=== PATIENT | female | born 1970 | race Caucasian/White ===

== ENCOUNTER → 2016-08-20 | Outpatient (CLI) | payer OTHER | LOC: BMCIMAGING 11:25 | DX: Z12.31 Encounter for screening mammogram for malignant neoplasm of breast (principal) | CPT/HCPCS: G0202 ==

== ENCOUNTER → 2017-08-24 | Outpatient (CLI) | payer OTHER | LOC: BMCIMAGING 14:02 | PROVIDERS: ATTEND Internal Medicine | DX: Z12.31 Encounter for screening mammogram for malignant neoplasm of breast (principal) ==

== ENCOUNTER 2017-11-07 09:18 | Inpatient (IN) | payer OTHER ==
--- NOTE | 2017-11-07 09:27 | EDPHY ---
H & P Stated Complaint: hyponatremia Time Seen by Provider: 11/07/17 09:26 - Personal History LMP (Females 10-55): 8-14 Days Ago Current Tetanus Diphtheria and Acellular Pertussis (TDAP): Yes - Medical/Surgical History Hx Asthma: No Hx Chronic Respiratory Disease: No Hx Diabetes: No Hx Cardiac Disease: No Hx Renal Disease: No Hx Cirrhosis: No Hx Alcoholism: No Hx HIV/AIDS: No Hx Splenectomy or Spleen Trauma: No Other PMH: denies - Social History Smoking Status: Never smoked Constitutional: Initial Vital Signs Temperature (C) 36.3 C 11/07/17 09:21 Heart Rate 71 11/07/17 09:21 Respiratory Rate 18 11/07/17 09:21 Blood Pressure 135/87 H 11/07/17 09:21 O2 Sat (%) 98 11/07/17 09:21 O2 Delivery Mode Room Air Allergies/Adverse Reactions: No Known Allergies Allergy (Verified 11/07/17 09:19) Home Medications: Medication Instructions Recorded Citalopram 11/07/17 NK [No Known Home Meds] 11/07/17 Medical Decision Making ED Course/Re-evaluation: CHIEF COMPLAINT: Hyponatremia HISTORY OF PRESENT ILLNESS: The patient is a 47 y/o female arriving for hyponatremia. She was seen here last night for anxiety and confusion after 5 alcoholic drinks and a small amount of marijuana. She awoke this morning feeling confused and off balance. Initially, she requested a full workup and labs were sent. She then changed her mind and requested to go home. She left but labs came back indicating a sodium of 119. She was asked to return. She reports feeling sleepy, nauseated, off-balance, and confused. Her reports she was drinking lots of water last night. She denies a history of electrolyte abnormalities. REVIEW OF SYSTEMS: A 10 point review of systems was performed and is negative with the exception of the elements mentioned in the history of present illness. PHYSICAL EXAM: HR, BP, O2 Sat, RR. Temp noted General Appearance: Alert, well hydrated, appropriate, somnolent but easily arousable. Responds when spoken to. Head: Atraumatic without scalp tenderness or obvious injury Eyes: Pupils equal, round, reactive to light and accommodation, EOMI, no trauma , no injection. Ears: Clear bilaterally, no perforation, normal landmarks Nose: Atraumatic, no rhinorrhea, clear. Throat: There is no erythema or exudates, no lesions, normal tonsils, mucus membranes moist. Neck: Supple, nontender, no lymphadenopathy. Respiratory: No retractions, no distress, no wheezes, and no accessory muscle use. Cardiovascular: Regular rate and rhythm, no murmurs, rubs, or gallops. Gastrointestinal: Abdomen is soft, nontender, non-distended, no masses, no rebound, no guarding, no peritoneal signs. Musculoskeletal: Normal active ROM of all extremities, atraumatic. Neurological: Alert, appropriate, and interactive. Skin: No rashes, good turgor, no nodules on palpation. Past medical history: Anxiety Past surgical history: Denies Family history: Non-contributory Social history: , at bedside, lives in [place], nonsmoker DIFFERENTIAL DIAGNOSIS: The differential diagnosis for this patient's hyponatremia included but was not limited to excess water intake, kidney disease , acute kidney failure, and other electrolyte abnormalities. MEDICAL DECISION MAKING: The patient presents with hyponatremia. She was seen earlier for possible intoxication but did not improve as expected. A full workup was ordered but she decided to leave prior to the completion of her workup. Labs indicate a sodium of 119. She was drank a fair amount of water yesterday which may be the cause. Plan for urine osmolarity, urine chloride, urine potassium, urine sodium, urine creatinine, and admission for further treatment and workup of cause. 9:45 AM - I spoke with the hospitalist service regarding admission for this patient. Dr. Vital will be the admitting physician. I consulted with Dr. Gaytan, nephrology, who agrees with the labs ordered but believes she likely has an underlying condition causing the hyponatremia. She will consult on this patient. - Data Points Laboratory Results: 11/07/17 07:45 Serum Osmolality Pending Departure - Departure Disposition: [facility] Inpatient Acute Clinical Impression: Hyponatremia Condition: Fair Referrals: NONE *PRIMARY CARE P,. [Primary Care Provider] - As per Instructions Report Scribed for: Maxwell Katz Report Scribed by: Guera Duong Date of Report: 11/07/17 Time of Report: 10:17
[2017-11-07] MEDS ORDERED: ONDANSETRON 4 MG/2 ML VIAL IVP PRN (13:08)
[2017-11-07] MEDS ORDERED: ACETAMINOPHEN 325 MG TAB PO PRN (13:08)
[2017-11-07] MEDS ORDERED: ONDANSETRON DISINTEGRATING 4 MG TAB PO PRN (13:08)
--- NOTE | 2017-11-07 14:30 | GHP ---
[f rep st] HISTORY AND PHYSICAL DATE OF ADMISSION: 11/07/2017 CHIEF COMPLAINT: Disorientation. HISTORY OF PRESENT ILLNESS: This is a 47-year-old female who is fairly healthy. She only has a hist ory of anxiety and has been on Celexa for quite a long time. Currently, she has been in her usual [facility]. Yesterday, she went to a concert and had 3 margaritas and may be a vodka drink as wel l as 1 hit of marijuana. Per her , she drank a significant amount of water throughout the nig ht. Early this morning, she felt confused and off-balance and came to the emergency department. She currently feels sleepy, disoriented. No focal weakness. She has never had any symptoms like this b efore. She had normal electrolytes in 2012. REVIEW OF SYSTEMS: A 10-point review of systems was obtained and was negative. PAST MEDICAL HISTORY: Anxiety. MEDICATIONS: Celexa. SOCIAL HISTORY: No smoking. Alcohol. FAMILY HISTORY: Anxiety. PHYSICAL EXAM: VITAL SIGNS: Afebrile, blood pressure is 99/66, heart rate 77, oxygen saturation 97% on room air. GENERAL: The patient is well developed, no apparent distress. HEENT: Nonicteric scl erae. Extraocular movements intact. Slightly dry mucous membranes. NECK: Supple. No thyromegaly. LUNGS: Good effort. Clear to auscultation bilaterally. CARDIOVASCULAR: Regular rate and rhythm. No murmurs, gallops. ABDOMEN: Positive bowel sounds. Soft, nontender, nondistended. No hepatosp lenomegaly. EXTREMITIES: No clubbing, cyanosis, or edema. SKIN: Without rash. Warm, dry, intact. NEUROLOGIC: Alert, has minimal responses to questions, although, and looks like she gets confused w ith some of them. Moving all 4 extremities equally. LABORATORY DATA: Sodium is 119, creatinine 0.5. Urine sodium is 747, urine osmo 3307. ASSESSMENT: A 47-year-old female presenting with hyponatremia. PLAN: 1. Hyponatremia. Could be a combination of some chronic syndrome of inappropriate antidiuretic horm one along with polydipsia and low solute. I would have expected, however, her sodium to correct some on its own if there was some polydipsia involved. Sodiums between 7:00 and 11:00 were exactly the s ladonna. She is somewhat confused, and I am a little bit concerned about that. I have discussed the yelena e with Nephrology who will actually see the patient quite quickly. We discussed possible giving 3%, and they will assess the patient and make that decision. We will continue monitoring in the step-thom n unit. 2. Anxiety. I am going to hold the Celexa due to possible cause of syndrome of inappropriate antidi uretic hormone. Could probably restarted. She probably will go into some withdrawal since she has b een on it for so long. /[id number]/MODL
--- NOTE | 2017-11-07 14:57 | PDCONSULT ---
Quarantine Officer Note: Renal Consult CC: Confusion, nausea HPI: The patient is a 47 y/o F with a known h/o depression who presented to the ED this AM c/o nausea and confusion. She states that her symptoms began last night after she went to the [employer] concert and took a "marijuana pill" given to her by her . She states that at the show she began to feel very dizzy and was drinking a lot of water. She now appears confused and has very slow speech, trouble with word finding, and an unsteady gait. She denies other illicit drug use including use of MDMA. She denies h/o issues with her sodium and has not been on any diuretics. She has taken Celexa for >10 years and is compliant with this medication. She has no pain and no symptoms of infection. Other ROS negative. PMH: Mitral valve prolapse, depression Surgical History: None Social History: Lives with , non-smoker. Some ETOH use. Family History: Non-contributory Medications: List reviewed. NKDA ROS: Negative except as above. Objective: Temp Pulse Resp BP Pulse Ox 36.3 C 77 14 99/66 L 97 11/07/17 09:21 11/07/17 11:52 11/07/17 11:52 11/07/17 11:52 11/07/17 11:52 Gen: Lethargic, oriented to self HEENT: No trauma, MMM Neck: No thyromegaly or lymphadenopathy CV: RRR, no murmurs or rubs RESP: CTA b/l, no wheezing ABD: Soft, NT, ND EXT: No edema, pulses intact NEURO: Unsteady gait, confused Labs: Sodium 123 mEq/L (135-145) L 11/07/17 14:25 Potassium 4.0 mEq/L (3.3-5.0) 11/07/17 11:45 Chloride 87 mEq/L (97-110) L 11/07/17 11:45 Carbon Dioxide 18 mEq/l (22-31) L 11/07/17 11:45 Anion Gap 14 mEq/L (8-16) 11/07/17 11:45 BUN 6 mg/dL (7-23) L 11/07/17 11:45 Creatinine 0.5 mg/dL (0.6-1.0) L 11/07/17 11:45 Estimated GFR > 60 11/07/17 11:45 Glucose 96 mg/dL (70-100) 11/07/17 11:45 Serum Osmolality 243 mosmo/kg (280-297) L 11/07/17 09:30 Calcium 8.4 mg/dL (8.5-10.4) L 11/07/17 11:45 Urine Osmolality 307 mosmo/kg (300-900) 11/07/17 09:30 Ur Random Creatinine 28.6 mg/dL 11/07/17 09:30 Ur Random Sodium 47 mEq/L (30-90) 11/07/17 09:30 Ur Random Potassium 36.5 mEq/L (0.5-35.0) H 11/07/17 09:30 Ur Random Chloride 41 mEq/L 11/07/17 09:30 Urine Opiates Screen NEGATIVE (NEGATIVE) 11/07/17 09:30 Urine Barbiturates NEGATIVE (NEGATIVE) 11/07/17 09:30 Ur Phencyclidine Scrn NEGATIVE (NEGATIVE) 11/07/17 09:30 Ur Amphetamine Screen NEGATIVE (NEGATIVE) 11/07/17 09:30 U Benzodiazepines Scrn NEGATIVE (NEGATIVE) 11/07/17 09:30 Urine Cocaine Screen NEGATIVE (NEGATIVE) 11/07/17 09:30 U Marijuana (THC) Screen NON-NEGATIVE (NEGATIVE) H 11/07/17 09:30 A/P: The patient is a 47 y/o F who presents with symptomatic hyponatremia. She has made >1.5L of UO since admission in the last 3 hours with improvement in her sodium to 123mg/dL from 119. Appears to be an acute presentation with urine studies consistent with SIADH based on clinical history and may be contributed to illicit substance taken last night at a concert. Despite possibly "turning off" ADH patient is still very confused. -will give 1.8% NS, 50cc over 2h -repeat BMP q3h -Loyda, Uosm later tonight and in am -do not need PICC for this concentration d/w ICU -hold salt tabs for now -check TSH -monitor neuro checks -goal sodium 125-129 by 7am tomorrow -consult appreciated, will continue to follow Please contact if further ?'s, #[phone].
[2017-11-07] MEDS ORDERED: SODIUM CL 23.4% 308 MEQ in WATER FOR INJECTION,STERILE 1,000 ML IV SCH (15:00)
--- NOTE | 2017-11-07 15:47 | GHP ---
[f rep st] HISTORY AND PHYSICAL DATE OF ADMISSION: 11/07/2017 REFERRING PHYSICIAN: Rosalind Vital MD REASON FOR REFERRAL: Evaluation and management of hyponatremia and confusion. HISTORY: Ms. Tovar is a 47-year-old woman with a history of depression who was in her usual state of good health when she went to a concert last night. She had a couple of margaritas as well as a drin k and a pill that she understood to believe was CBD. She apparently drank a significant amount of wa ter during the night, as it was fairly hot at the concert. Early this morning, she reported that she was not sleeping well and she felt quite confused and off-balance. She presented to the emergency d epartment where she indicated that she wanted an evaluation. However, she left before laboratory res ults came back. When they came back, her sodium level was 119, so she was called and it was recommen ded that she return to the hospital. She has now been admitted here. She reports that she feels a l ittle bit better, with a little bit less confusion. She started to have urine output. PAST MEDICAL HISTORY: Depression. MEDICATIONS: Celexa. ALLERGIES: None. SOCIAL HISTORY: No smoking. She does drink alcohol socially. FAMILY HISTORY: Unremarkable. REVIEW OF SYSTEMS: A 10-point review of systems adds nothing to the history of present illness. PHYSICAL EXAMINATION: GENERAL: The patient is awake and alert. VITAL SIGNS: Blood pressure is 99/ 66, with a heart rate of 77. She is afebrile. Oxygen saturations are 97% on room air. HEENT: Norm ocephalic and atraumatic. Eyes: No icterus. NECK: No JVD. Trachea is midline. CHEST: Clear to auscultation. CARDIAC: Regular rate and rhythm without murmur. ABDOMEN: Soft, nontender. Bowel s ounds present. EXTREMITIES: No clubbing, cyanosis, or edema. NEURO: The patient is awake and has fairly short responses to questions, but is aware of the events of the last 24 hours. She has no arsen ss motor deficits. LABORATORY: Sodium level is 123, up from 119 several hours earlier. Chloride was 87 and carbon diox john level is 18. Creatinine is normal at 0.5. Serum osmolality is 243. Tox screen is negative for THC. Urine sodium is 47. ASSESSMENT: Hyponatremia. This is likely acute and related to large water intake that could be drug related or also could have been behavior with a large amount of free water taken last night. The pa edwar has some mild confusion with this. She does have urine output, so should start to be able to r aise her serum sodium. I discussed the case with Dr. Gaytan from Nephrology, and initially it w as proposed that we try some 3% saline, but this would require placement of a PICC line. 1.8% hyperto ed saline would likely be less irritating and better tolerated, yet still help reach a goal of raisi ng her sodium up to the mid 120s by a later today. RECOMMENDATIONS: 1. Start 1.8% normal saline via peripheral IV, 50 cc total over 2 hours, then recheck the serum sodi um level. 2. Continue to monitor in step-down unit. /[id number]/MODL
--- NOTE | 2017-11-07 16:16 | ASMTCMCOM ---
CM Note CM Note Notes: 47yr old female went to a concert needed to be admitted for her Confusion, Hyponatremia, ETOH intox, Marajuana use, Anxiety. She has a Hx of depression. Patient lives with her . CM not anticipating that patient will have discharge needs. Date Signed: 11/07/2017 04:15 PM Electronically Signed By:Nat Mcfarland LCSW
--- NOTE | 2017-11-07 17:47 | PDMN ---
Medical Necessity Medical necessity: [facility]007 Electrolyte Disorder. 47 y/o patient presents with confusion, unsteady gait and difficulty finding words. Hyponatremic with BQ=115. Hypocalcemic. Dx increased H2O intake, unknown medication intake or SIADH. Neprhology consult. IV fluids and frequent neuro checks required. Anticipate>2MN for ongoing monitoring, dx and treatment.
[2017-11-07] MEDS ORDERED: D5W 1,000 ML IV SCH (19:00)
[2017-11-08 05:40] LABS: PLATELET COUNT 254 10^3/uL (150-400)
[2017-11-08 07:34] VITALS: BP 95/60
--- NOTE | 2017-11-08 12:32 | ASDISCHSUM ---
Discharge Information Plan Status:Home with No Needs Medically Cleared to Leave:11/08/2017 Discharge Date:11/08/2017 CM D/C Disposition:Home, Routine, Self-Care ADT D/C Disposition:Home, Routine, Self-Care Projected Discharge Date:11/08/2017 01:00 PM Transportation at D/C:Family Discharge Delay Reason: Follow-Up Date:11/08/2017 01:00 PM Discharge Slot: Final Diagnosis:Hyponatremia, ETOH intox, Marajuana use, Anxiety Placement Information Patient Contact Information Contact Name:SHAMIR Relationship: Address:[address] Work Phone: [facility]:[place] Alternate Phone: [facility]/Zip Code:[place] [address] Email: Financial Information Financial Class:HMO and PPO Plans Primary Plan Desc:[facility] CHRISTOPHER ALVES MD Primary Plan Number:[id number] Secondary Plan Desc: Secondary Plan Number: Assessment Information [facility] CM Progress Note CM Note CM Note Notes: 47yr old female went to a concert needed to be admitted for her Confusion, Hyponatremia, ETOH intox, Marajuana use, Anxiety. She has a Hx of depression. Patient lives with her . CM not anticipating that patient will have discharge needs. Date Signed: 11/07/2017 04:15 PM Electronically Signed By:Nat Mcfarland LCSW LACE LACE Length of stay for Answers: 1 day current admission Acuity / Level of Answers: No Care: Did the patient have an inpatient admission? # of Emergency department Answers: 1-2 visits in the last 6 months Social determinants Answers: History of substance abuse (ETOH, street drugs, prescription drugs, etc.) Mental health diagnosis (anxiety, depression, pers onality disorders, etc.) Score: 8 Date Signed: 11/07/2017 04:16 PM Electronically Signed By:Nat Mcfarland LCSW Case Management Discharge Plan Note Case Management Discharge Discharge Order Complete? Answers: Yes Patient to Obtain Answers: Independently Medications Transportation Arranged Answers: Family/Friends Transport will Pick (Date 11/08/2017 01:00 PM & Time) Family Notified Answers: Yes Notes: Family to transport Discharge Comments Notes: Patient has been discharged. She had questions about her Hyponatremia that were answered by the RN. Patient reports that her ETOH/substance use at the concert were not the usual for her. She may have wine at dinner but otherwise doesn't feel she has an alcohol problem or need resources. Patient didn't want to leave the hospital last night but felt she was still confused and influenced by her and [id number]. She returned to the hospital because she was still not feeling well. Date Signed: 11/08/2017 12:30 PM Electronically Signed By:Nat Mcfarland LCSW Intervention Information
--- NOTE | 2017-11-08 12:38 | SOAPPROG ---
SOAP Progress Note Assessment/Plan: Assessment/Plan: The patient is a 47 y/o F who presents with symptomatic hyponatremia. -s/p 1.8% NS, 50cc over 2h with improvement now to 132mg/dL -may discharge with outpt labs this week -Loyda still elevated, would not overdrink water this week 1.5L or so is fine for a few days -TSH elevated, may have some hypothyroidism and should f/u with PCP regarding this as well -consult appreciated, patient has card if she wishes to f/u in our office 11/08/17 12:36 Subjective: Ran some d5 overnight. Patient feeling a lot better this AM. Confusion and gait issues resolved. Objective: Vital Signs Temp Pulse Resp BP Pulse Ox 37.0 C 70 12 95/60 L 97 11/08/17 07:32 11/08/17 07:31 11/08/17 07:31 11/08/17 07:32 11/08/17 07:31 Laboratory Results 11/08/17 05:25 11/08/17 05:20 11/07/17 11/08/17 11/09/17 05:59 05:59 05:59 Intake Total 1306 Output Total 4450 400 Balance -3144 -400 Physical Exam - Physical Exam General Appearance: WD/WN, alert, no apparent distress EENT: PERRL/EOMI Neck: non-tender, full range of motion, supple Respiratory: chest non-tender, lungs clear, normal breath sounds Cardiac/Chest: normal peripheral pulses, regular rate, rhythm Abdomen: normal bowel sounds, non-tender, soft Back: Normal inspection Skin: normal color, warm/dry Extremities: normal range of motion, non-tender Neuro/Psych: no motor/sensory deficits, alert, normal mood/affect, oriented x 3 ICD10 Worksheet Patient Problems: Problems Problem Status Onset Hyponatremia Acute
--- NOTE | 2017-11-08 15:17 | GDS ---
[f rep st] DISCHARGE SUMMARY DISCHARGE DIAGNOSES: 1. Symptomatic hypovolemic hyponatremia. 2. Depression. HISTORY OF PRESENT ILLNESS: A 47-year-old female with history of depression, who was in her usual state of health when she went to a concert the night prior to admission. She had a couple of margaritas and a couple other vodka drinks and a pill that she understood was CBD. She drank a significant amount of water during the night, given the heat at concert. rn progressive care unit, she reported not sleeping well and felt confused and very weak. She presented ER and sodium was 119. HOSPITAL COURSE BY PROBLEM: 1. Symptomatic hypovolemic hyponatremia: Multifactorial with alcohol and excess water. She was evaluated by Renal and started on 1.8% normal saline to avoid PIC placement. Her sodium improved to 132 this morning. She is asymptomatic. I counseled patient on limiting the amount of water she drinks on a normal basis. Recommending no more than 1.5 L for the next couple of days and then 2-3 daily. 2. Subclinical hypothyroidism: TSH is mildly elevated. Recommend follow up with PCP for repeat labs in a few weeks. 3. Depression. Citalopram. DISPOSITION: 1. Patient is stable for discharge. Her symptoms and labs improved rapidly, thus did not require 2 midnight stay 2. Diet 1.5 L fluid for the next couple of days. FOLLOWUP: 1. Primary care physician. 2. Repeat TSH. PHYSICAL EXAM: VITAL SIGNS: Today, temperature 37, blood pressure is 90s over 60s, respirations 70, heart rate in the 70s, respirations 12, 95% on room air. GENERAL: She is thin, lying in bed, no acute distress. HEENT: Moist mucous membranes. CV: Regular rate and rhythm. LUNGS: Clear. ABDOMEN: Soft, nontender. MUSCULOSKELETAL: 5/5 upper and lower extremity strength. NEURO: 2 through 12 intact. PSYCH: Alert and oriented x3. Time spent on discharge greater than 30 minutes counseling the patient and on fluid restriction. Follow up with PCP and labs. /[id number]/MODL MTDD
== END 2017-11-08 12:56 | disposition home or self-care (01) | DRG 641 ==
LOC: OBSVTOIN 10:33 → F2N 12:03
PROVIDERS: ADMIT Internal Medicine; ATTEND Internal Medicine
DX: E87.1 Hypo-osmolality and hyponatremia (principal); E87.8 Other disorders of electrolyte and fluid balance, not elsewhere classified; F32.9 Major depressive disorder, single episode, unspecified; R41.0 Disorientation, unspecified; I34.1 Nonrheumatic mitral (valve) prolapse; R26.9 Unspecified abnormalities of gait and mobility; F12.90 Cannabis use, unspecified, uncomplicated
CPT/HCPCS: 80305

== ENCOUNTER → 2018-08-25 | Outpatient (CLI) | payer OTHER | LOC: BMCIMAGING 13:01 | PROVIDERS: ATTEND Internal Medicine | DX: Z12.31 Encounter for screening mammogram for malignant neoplasm of breast (principal) ==